=== PATIENT | female | born 1955 | race Caucasian/White ===

== ENCOUNTER 2016-10-25 21:53 | Emergency (ER) | payer BC ==
--- NOTE | ~2016-10-25 | HP ---
History And Physical [place] [address] [place]. [address] NAME: SHAMAR SRIVASTAVA : 59 STATUS : ADM IN [facility]#: [id number] AGE: 61 ADM/REG DATE : 10/26/16 MR#: [id number] REPORT SERV DATE: 10/26/16 DICTATED BY: BAN OLSON DATE: 10/26/16 REPORT STATUS : Draft TRANSCRIBED BY: MODOsman DATE: 10/26/16 DATE OF ADMISSION: 10/26/2016 CHIEF COMPLAINT: A 61-year-old female presenting with shortness of breath and chest pain. HISTORY OF PRESENT ILLNESS: The patient's history was obtained through an interview with patient and her daughter. The patient for several days has been having increasing shortness of breath and nonproductive cough, but then on the evening of admission, she developed severe back and mid chest pain, a sharp radiating pain, 10/10 severity, exacerbated by coughing and deep breathing. She describes significant dyspnea on exertion. She denies really any other medical issues or complaints. No fevers or chills. No lightheadedness. No nausea or vomiting. No change in bowel or bladder habit. She has no particular urinary complaints. There is no dysuria. She does chronically use the bathroom about 15 or 20 times a day with urinary frequency, but it has not changed recently. She has noticed no foul odor to her urine. REVIEW OF SYSTEMS: Otherwise, a 14-point review of systems was obtained and was negative. PAST MEDICAL HISTORY: 1. COPD. 2. Diverticulitis. PAST SURGICAL HISTORY: Denies any. ALLERGIES: TO CODEINE. SOCIAL HISTORY: The patient is a smoker. No alcohol abuse. She has three children. She is . Lives in [place], [place]. She is the primary caregiver for her four grandchildren, ages 11, 13, 14, and 15. 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 Apparently, has been putting in up to seven days a week 12 hour days. FAMILY HISTORY: Mother and grandmother of congestive heart failure. Father just in earlier 2016 from coronary artery disease. CURRENT MEDICATIONS: 1. Albuterol inhaler. 2. Cymbalta 60 mg p.o. daily. 3. Neurontin 600 mg p.o. daily. 4. Spiriva. History And Physical [place] [address] [place]. [address] NAME: SHAMAR SRIVASTAVA : 59 STATUS : ADM IN [facility]#: [id number] AGE: 61 ADM/REG DATE : 10/26/16 MR#: [id number] REPORT SERV DATE: 10/26/16 DICTATED BY: BAN OLSON DATE: 10/26/16 REPORT STATUS : Draft TRANSCRIBED BY: KRISTOPHER DATE: 10/26/16 PHYSICAL EXAMINATION: VITAL SIGNS: Temperature 98.8, pulse 104, blood pressure 135/63, respiratory rate 20, and O2 saturation 92% on room air, it does drop down to 88% on room air with exertion. GENERAL: Pleasant cooperative female, but she describes distress from shortness of breath. HEENT: Pupils are equal, round, and reactive to light. No conjunctival pallor. No scleral icterus. Nares are patent. Oropharynx is clear of obstruction. Moist mucous membranes. NECK: Trachea midline. No thyromegaly. LYMPH: No cervical lymphadenopathy. No supraclavicular lymphadenopathy. RESPIRATORY: The patient has inspiratory and expiratory wheezes. Also diminished breath sounds at the right base of lung. There is a definite focal egophony at the base of the lung. The patient has a labored respiratory effort. CARDIOVASCULAR: Tachycardic. Regular rhythm. No murmurs, rubs, or gallops. No extremity edema is appreciated. ABDOMEN: Soft, nontender, and nondistended. Normal bowel sounds auscultated throughout. No hepatosplenomegaly. DERMATOLOGICAL: Diaphoretic. Warm extremities. No pallor. No cyanosis. PSYCHIATRIC: Normal affect. Good mood. Alert and oriented x3. LABORATORY DATA: White blood cell count 15.8, hemoglobin 14.8, hematocrit 44.4, and platelets 246. Sodium 135, potassium 4.1, chloride 100, bicarb 29, BUN 14, creatinine 1.03, and glucose 115. Troponin negative. Brain natriuretic peptide 9. INR 1.1. Lactic acid pending at the time of dictation. Urinalysis shows large leukocyte esterase, positive nitrites, and 47 white blood cells. STUDIES: 1. Chest x-ray by my own evaluation shows right middle and lower lung pneumonia. 2. EKG by my own evaluation shows sinus tachycardia. 3. CT angiogram of the chest shows no pulmonary embolism, but dense right middle and lower lung pneumonia. ASSESSMENT AND PLAN: 1. Sepsis, positive criteria that includes tachycardia, white blood cell count of 15.8. Check blood cultures. Place on IV antibiotics. 2. Community-acquired pneumonia. Check blood cultures. Place on IV antibiotics. 3. Chronic obstructive pulmonary disease exacerbation. Place on IV Solu-Medrol, Duo nebulizers. The patient has borderline hypoxic respiratory failure. 4. Urinary tract infection. Check urine culture. Place on IV antibiotics. ADDENDUM TO ADMISSION NOTE: It was clear that after I admitted the patient, she did not wish to stay in the hospital. History And Physical [address] 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 Therefore, she has adamantly stated that she will leave against medical advice here from the emergency department and recognizes that the diagnosis of sepsis, hypoxic respiratory failure with pneumonia, COPD, and urinary tract infection. Even has the potential of being a deadly disease and life-threatening, if not well controlled. Nonetheless, we facilitated her leaving against medical advice as this was her wish by providing her with prescriptions for Omnicef 300 mg p.o. b.i.d. for seven days; azithromycin 250 mg p.o. daily for five days; a prednisone taper at 40 mg a day for three days, 30 mg a day for three days after that, then 20 mg a day for three days after that, and then finally 10 mg daily for the last three days. Certainly, she was instructed to use nasal cannula oxygen (which she has at home) as needed and to see her primary care physician in a timely manner. SANDRA/KRISTOPHER Ban Olson M.D. / [id number] CC: Daniel Cancino M.D.
[2016-10-25 21:18] LABS: BASOPHILS 0.4 %; BASOPHILS ABSOLUTE 0.07 10/3/uL (0.0-0.16); EOSINOPHILS 1.1 %; EOSINOPHILS ABSOLUTE 0.18 10/3/uL (0.0-0.53); ER CBC TAT 0 Hrs 09 Mins; HEMATOCRIT 44.4 % (36.0-48.0); HEMOGLOBIN 14.8 g/dL (12.0-16.0); IMMATURE GRANULOCYTES 0.5 %; IMMATURE GRANULOCYTES ABSOLUTE 0.08 10/3/uL (0.0-0.11); LYMPHOCYTES 14.2 %; LYMPHOCYTES ABSOLUTE 2.24 10/3/uL (0.67-4.30); MANUAL DIFF NO %; MEAN CORPUS HGB CONC 33.3 g/dL (32.0-36.0); MEAN CORPUSCULAR HEMOGLOB 29.1 pg (26.0-34.0); MEAN CORPUSCULAR VOLUME 87.2 fL (80-100); MEAN PLATELET VOLUME 11.5 fL (9.2-13.0); MONOCYTES 9.2 %; MONOCYTES ABSOLUTE 1.46 10/3/uL (0.21-1.20); NEUTROPHILS 74.6 %; NEUTROPHILS ABSOLUTE 11.78 10/3/uL (2.02-8.40); PLATELET COUNT 246 10/3/uL (150-400); RBC DISTRIBUTION WIDTH 14.8 % (12.0-16.0); RED CELL COUNT 5.09 10/6/uL (4.0-5.6); WHITE BLOOD CELLS 15.8 10/3/uL (4.5-10.5)
[2016-10-25 21:25] LABS: INTERNATIONAL NORMAL RATI 1.1 UNITS (-); PARTIAL THROMBO TIME 26.3 SEC (22.5-37.2); PROTIME (NOT ORD) 14.2 SEC (12.0-14.5)
[2016-10-25 21:34] LABS: BUN (BLOOD UREA NITROGEN) 14 MG/DL (6-23); CALCIUM, SERUM 8.7 MG/DL (8.5-10.4); CHEST PAIN PROFILE TAT 0 Hrs 25 Mins; CHLORIDE, SERUM 100 MMOL/L (96-112); CO2 (CARBON DIOXIDE) 29 MMOL/L (24-34); CREATININE 1.03 MG/DL (0.55-1.02); GFR AFRICAN AMERICAN 69 ML/MIN (>=60); GFR NON AFRICAN AMERICAN 59 ML/MIN (>=60); GLUCOSE, SERUM 115 MG/DL (60-99); POTASSIUM, SERUM 4.1 MMOL/L (3.5-5.3); SODIUM, SERUM 135 MMOL/L (135-148); TROPONIN I <0.02 NG/ML (<0.05)
[~2016-10-25 21:53] MED LIST: CYMBALTA60 PO; NEUR300 PO; PROAIR HFA INH; STIOLTO RESPIMAT4 GM INH
[2016-10-26 00:51] LABS: ASCORBIC ACID (UR NOT ORDER) NEG (NEG); BILIRUBIN, URINE NEGATIVE (NEG); ER URINALYSIS TAT 0 Hrs 00 Mins; KETONE, URINE NEGATIVE (NEG); LEUKOCYTE ESTERASE(NOT OR LARGE (NEG); NITRITE (URINE) POS (NEG); WBC (NOT ORDERED) (RFLEX) 47 (0-5)
== END 2016-10-26 01:41 | disposition left against medical advice (07) ==
LOC: ER 21:53
PROVIDERS: Emergency Medicine
DX: R07.89 Other chest pain (principal); R53.1 Weakness; J45.909 Unspecified asthma, uncomplicated; J44.1 Chronic obstructive pulmonary disease with (acute) exacerbation; N39.0 Urinary tract infection, site not specified; E86.0 Dehydration; F17.200 Nicotine dependence, unspecified, uncomplicated; Z88.5 Allergy status to narcotic agent; Z79.899 Other long term (current) drug therapy
CPT/HCPCS: 71010; 71275; 80048; 81001; 83605; 83735; 83880; 84484; 85025; 85379; 85610; 85730; 87040; 87077; 87086; 87186; 93005; 96374; 99285; A9270-GY; J2405; J2930; Q9967